=== PATIENT | male | born 1955 | race Two or more races ===

== ENCOUNTER → 2019-10-09 | Outpatient (CLI) | payer OTHER | END | disposition home or self-care (01) | LOC: RAD 09:26 | DX: M54.2 Cervicalgia (principal) | CPT/HCPCS: 72141 ==

== ENCOUNTER 2019-12-22 10:42 | Outpatient (CLI) | payer OTHER | END 2019-12-22 10:48 | disposition home or self-care (01) | LOC: SONOGRAMA 10:42 | DX: R19.03 Right lower quadrant abdominal swelling, mass and lump (principal) ==

== ENCOUNTER 2020-09-29 08:43 | Outpatient (CLI) | payer OTHER | END 2020-09-29 08:48 | disposition home or self-care (01) | LOC: SONOGRAMA 08:43 → MAMO-SONO 09:00 | PROVIDERS: ATTEND Internal Medicine | DX: N40.1 Benign prostatic hyperplasia with lower urinary tract symptoms (principal) ==

== ENCOUNTER 2021-09-07 10:54 | Outpatient (CLI) | payer OTHER | END 2021-09-07 10:56 | disposition home or self-care (01) | LOC: TOM 10:54 | PROVIDERS: ATTEND Otolaryngology | DX: J32.4 Chronic pansinusitis (principal); J30.89 Other allergic rhinitis ==

== ENCOUNTER 2023-04-09 08:51 | Outpatient (CLI) | payer OTHER | END 2023-04-09 12:22 | disposition home or self-care (01) | LOC: TOM 08:51 | PROVIDERS: ATTEND Otolaryngology | DX: J34.2 Deviated nasal septum (principal); J34.3 Hypertrophy of nasal turbinates | CPT/HCPCS: 70487; Q9965 ==

== ENCOUNTER 2023-08-27 09:25 | Day surgery (SDC) | payer OTHER | END 2023-08-27 16:15 | disposition home or self-care (01) | LOC: AMB-ENDOS 09:25 | PROVIDERS: ATTEND Internal Medicine Gastroenterology | DX: Z12.11 Encounter for screening for malignant neoplasm of colon (principal); Z20.822 Contact with and (suspected) exposure to COVID-19 ==

== ENCOUNTER 2025-07-06 10:16 | Outpatient (CLI) | payer OTHER | END 2025-07-06 10:19 | disposition home or self-care (01) | LOC: RAD 10:16 | PROVIDERS: ATTEND Physical Medicine & Rehabilitation | DX: M62.838 Other muscle spasm (principal); M62.830 Muscle spasm of back ==